=== PATIENT | male | born 1985 | race Caucasian/White ===

== ENCOUNTER 2017-06-22 13:47 | Emergency (ER) | payer OTHER ==
[~2017-06-22] VITALS: Ht 182.9 cm; Wt 127.2 kg
[2017-06-22] MEDS ORDERED: EPIPEN ADU0.3 MG/0.3 IM (16:35)
[2017-06-22] MEDS ORDERED: PREDNISONE50 MG PO (16:35)
[2017-06-22 18:29] VITALS: BP 111/74
== END 2017-06-22 18:34 | disposition home or self-care (01) ==
LOC: EME 13:47
DX: T78.04XA Anaphylactic reaction due to fruits and vegetables, initial encounter (principal); J45.909 Unspecified asthma, uncomplicated
CPT/HCPCS: 99281; 99285; J0171; J1200; J2930